=== PATIENT | female | born 1980 | race Caucasian/White ===

== ENCOUNTER → 2018-01-25 | Outpatient (CLI) | payer BC, OTHER ==
[~2018-01-25] MED LIST: ACETAMINOPHEN325 M1; BACTRIM DS TAB1 EACH PO; BUTALB-APAP-CA1 EACH PO; CIPRO250 M1 PO; CLEOCIN HCL300 MG PO; CLONAZEPAM 0.50.5 M1; CLONAZEPAM 0.50.5 M1 PO; CYMBALTA30 MG PO; DIFLUCAN150 MG PO; DOXYCYCLINE 10100 M1 PO; ERY-TAB500 MG PO; FLAGYL500 MG PO; FLEXERIL PO; HYDROCODON-ACE1 EAC7 PO; KEFLEX500 MG PO; MEDROL DOSPAK21 TAB PO; METROGEL-VAGINA70 GM VG; NOHOMEMEDICATIONS; NORCO 5-325 TA1 EACH PO; NORCO 7.5-3251 EACH PO; NORFLEX100 MG PO; ONDANSETRON HCL4 M2 PO; PERCOCET 5-3251 EACH PO; PREDNISONE 20 M20 M1 PO; SILVADENE20 GM TP; TESSALON200 MG PO; TRAMADOL 50 MG50 MG; TYLENOL EXTRA500 MG PO; ULTRAM 50MG TAB50 MG PO; VICKS INHALER50 MG; VICODIN 5-3001 EACH PO; VICODIN 5-5001 EACH PO
== END ==
LOC: PET 09:20
DX: R91.8 Other nonspecific abnormal finding of lung field (principal)